=== PATIENT | male | born 1980 | race Caucasian/White ===

== ENCOUNTER 2016-12-20 19:09 | Emergency (ER) | payer OTHER ==
[2016-12-20 19:27] VITALS: TEMP 97.8
[2016-12-20 20:41] VITALS: BP 148/94; RESP 18
[2016-12-20 20:42] VITALS: PULSE 105
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
== END 2016-12-20 22:10 | disposition home or self-care (01) ==
LOC: EC 19:09
DX: S51.811A Laceration without foreign body of right forearm, initial encounter (principal); S61.511A Laceration without foreign body of right wrist, initial encounter; F10.129 Alcohol abuse with intoxication, unspecified; F17.200 Nicotine dependence, unspecified, uncomplicated; Z79.899 Other long term (current) drug therapy; Z88.0 Allergy status to penicillin; Z91.048 Other nonmedicinal substance allergy status; W25.XXXA Contact with sharp glass, initial encounter
CPT/HCPCS: 12001; 99282

== ENCOUNTER → 2017-03-27 | Day surgery (SDC) | payer OTHER ==
[2017-03-21 15:24] VITALS: BMI 24.6
[~2017-03-27] MED LIST: MIDAZOLAM 2 MG/2 ML VIAL IVP ONE; MIDAZOLAM 2 MG/2 ML VIAL ONE; SODIUM CHLORIDE 0.9% 250 ML IV ONE; fentaNYL (PF) 50 MCG/ML 2 ML AMP ONE
[2017-03-27 06:52] VITALS: RESP 18; TEMP 97.8
[2017-03-27] MEDS: BENZOCAINE SPRAY 1 SPRAY CAN MUCOUS MEM ONE ×2 (07:24→07:26)
[2017-03-27] MEDS: MIDAZOLAM 2 MG/2 ML VIAL IVP ONE ×3 (07:26→07:44)
[2017-03-27 09:11] VITALS: BP 119/79; PULSE 62
--- NOTE | 2017-03-27 09:24 | ECHOT ---
TRANSESOPHAGEAL ECHOCARDIOGRAM DATE OF SERVICE: 03/27/2017 PERFORMING PHYSICIAN: Magdaleno Escobedo MD, Bed Worker. PROCEDURE PERFORMED: Transesophageal echocardiogram. INDICATION: This is a pleasant 36-year-old gentleman who was diagnosed with possible a TIA/stroke by Dr. Hill who requested the patient to undergo transesophageal echocardiogram to rule out any cardiac source of embolization. COMPLICATION: None. LEVEL OF SEDATION: Moderate with a sedation length of about 15 minutes. PROCEDURE DESCRIPTION: After obtaining an informed consent, the patient was brought to the Transesophageal Echocardiogram Suite. The patient was turned into left lateral position. The throat was sprayed using lidocaine. A pulse oximetry and heart rate monitor were attached to the patient. Subsequently, the transesophageal echocardiogram probe was advanced to the mid esophagus where 2D echocardiogram images as well as color Doppler images of various cardiac structures were obtained. The procedure was completed without any complication. FINDINGS: The left ventricular dimension and systolic function appeared to be within normal limits. The ejection fraction appeared to be in the range of 55% to 60% with normal wall motion. The right ventricle is of normal size and function. The left atrium and right atrium dimension appear to be within normal limits. The aortic valve is a trileaflet valve without stenosis or regurgitation. The mitral valve seems to be normal with trace MR. Normal tricuspid valve and pulmonic valve were seen. The left atrial appendage appeared to be free from any thrombus. The interatrial septum appeared to be intact. CONCLUSION: 1. There is no evidence of cardiac source of embolization. 2. Intact interatrial septum without any evidence of shunt. 3. Normal left atrial appendage without any thrombus. 4. Normal left ventricular dimension and systolic function. 5. Normal cardiac chamber sizes. 6. Overall normal intracardiac valves. 7. Normal aortic root dimension. 8. No evidence of pericardial effusion. MMODL / IJN: [id number] /
== END ==
LOC: CATHCVL 06:26
PROVIDERS: ATTEND Internal Medicine Interventional Cardiology
DX: R26.89 Other abnormalities of gait and mobility (principal); R20.0 Anesthesia of skin; Z86.73 Personal history of transient ischemic attack (TIA), and cerebral infarction without residual deficits; F17.200 Nicotine dependence, unspecified, uncomplicated; G47.00 Insomnia, unspecified; G56.03 Carpal tunnel syndrome, bilateral upper limbs; M54.2 Cervicalgia; G57.82 Other specified mononeuropathies of left lower limb; M19.90 Unspecified osteoarthritis, unspecified site; Z79.891 Long term (current) use of opiate analgesic; Z79.899 Other long term (current) drug therapy; Z79.82 Long term (current) use of aspirin; Z79.51 Long term (current) use of inhaled steroids; Z88.0 Allergy status to penicillin
CPT/HCPCS: 93312; 93320; 93325; 99152; 99153; J2250; J3010

== ENCOUNTER → 2018-03-12 | Outpatient (CLI) | payer OTHER ==
--- NOTE | 2018-03-12 10:59 | MR ---
EXAMINATION TYPE: MR shoulder RT wo con DATE OF EXAM: 03/12/2018 8:50 AM COMPARISON: NONE HISTORY: Right shoulder pain TECHNIQUE: Multiplanar multispin echo imaging of the right shoulder was performed. FINDINGS: Rotator cuff : Mild thickening and heterogeneity of the supraspinatus tendon compatible chronic tendi nopathy. There is no complete or bursal/articular sided partial rotator cuff tear. The subscapularis constituent of the rotator cuff is intact. Bursa: No bursal effusion or thickening is seen. Musculature: There is no muscular tear, contusion, or atrophy. Acromioclavicular joint : There are moderate degenerative changes of the acromioclavicular joint. Th ere is no anterior or lateral acromial downsloping. Osseous structures : There are no fractures or regions of abnormal bone marrow signal intensity. Long biceps tendon : The biceps tendon is normally situated within the bicipital groove. No complete or partial biceps tendon tear is present. Glenohumeral Joint fluid : There is no glenohumeral joint effusion. Cartilage and Bone : No focal hyaline cartilage defects are noted. No Hill-Sachs, reverse Hill-Sachs, or bony Bankart lesions are seen. Labrum : There are no SLAP or soft tissue Bankart lesions. No paralabral cysts are seen. OTHER FINDINGS : none IMPRESSION: 1. 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 No evidence for partial or fu ll-thickness tear.
== END | disposition home or self-care (01) ==
LOC: RADMRIMAIN 08:11
PROVIDERS: ATTEND Orthopaedic Surgery Sports Medicine
DX: M19.011 Primary osteoarthritis, right shoulder (principal); M75.81 Other shoulder lesions, right shoulder

== ENCOUNTER → 2018-03-26 | Outpatient (CLI) | payer OTHER ==
--- NOTE | 2018-03-26 07:57 | US ---
EXAMINATION TYPE: US liver DATE OF EXAM: 03/26/2018 COMPARISON: NONE CLINICAL HISTORY: R94.5 Abnormal results of liver function meds for HTN EXAM MEASUREMENTS: Liver Length: 19.2 cm Gallbladder Wall: 0.2 cm CBD: 0.4 cm Right Kidney: 11.1 x 5.9 x 4.1 cm Pancreas: wnl as seen as tail obscured by overlying bowel gas Liver: enlarged liver; hepatic veins limitedly seen and liver is hyperechoic to right renal cortex wh ich suggests fatty liver. This limits evaluation for underlying hepatic masses. Gallbladder: wnl Evidence for sonographic Hyatt's sign: no CBD: wnl Right Kidney: wnl IMPRESSION: 1. Sonographic findings most commonly related to hepatic steatosis overall appearing mild in degree. Correlate with liver function tests to exclude other hepatocellular diseases. 2. Suboptimal visualization of pancreas.
[2018-03-26 08:55] LABS: Albumin 4.5 g/dL (3.5-5.0); Bilirubin, Delta 0.3 mg/dL (0.0-0.2); Bilirubin,Unconjugated 0.3 mg/dL (0.0-1.1); Total Bilirubin 0.6 mg/dL (0.2-1.3); Total Protein 7.4 g/dL (6.3-8.2)
[2018-03-26 17:59] LABS: Iron Saturation 48.58 (15.00-50.00); Protein, Total 7.1 g/dL (6.2-8.2)
[2018-03-26 18:49] LABS: Hepatitis A Antibody IgM Non-Reactive (Non-Reactive); Hepatitis B Core IgM Non-Reactive (Non-Reactive)
[2018-03-27 12:29] LABS: Ceruloplasmin 22.4 mg/dL (20.0-60.0)
[2018-03-27 12:31] LABS: Albumin 4.51 g/dL (3.80-4.90); Gamma Globulin 0.87 g/dL (0.70-1.50)
== END | disposition home or self-care (01) ==
LOC: RADUSWWP 07:00
PROVIDERS: ATTEND Physician Assistant
DX: R94.5 Abnormal results of liver function studies (principal)
CPT/HCPCS: 76705; 80074; 80076; 82390; 82728; 83516; 83540; 83550; 84165; 86038

== ENCOUNTER 2018-04-10 07:31 | Day surgery (SDC) | payer OTHER ==
[2018-04-06 16:02] VITALS: BMI 24.7
[~2018-04-10 07:31] MED LIST changes: +HYDROmorphone 0.5 MG/0.5 ML SYRINGE IVP PRN; +LACTATED RINGERS 1,000 ML IV SCH; +LIDOCAINE 1% 20 ML VIAL (10MG/ML) FOR IV START INTRADERMA PRN; -MIDAZOLAM 2 MG/2 ML VIAL IVP ONE; -MIDAZOLAM 2 MG/2 ML VIAL ONE; -SODIUM CHLORIDE 0.9% 250 ML IV ONE; -fentaNYL (PF) 50 MCG/ML 2 ML AMP ONE
[2018-04-10 07:54] VITALS: TEMP 98
[2018-04-10] MEDS ORDERED: PROPOFOL 10 MG/ML 20 ML VIAL IV ONE (08:30)
[2018-04-10 09:09] VITALS: RESP 16
--- NOTE | 2018-04-10 09:18 | P.PCN ---
Date of Procedure: 04/10/18 Procedure(s) Performed: procedure: 1. Esophagogastroduodenoscopy and biopsy. 2. Colonoscopy and biopsy. Preoperative diagnosis: Chronic reflux symptoms and nausea and change in bowel habits. Postoperative diagnosis: 1. Sliding hiatal hernia with a grade B distal esophagitis. 2. Mild gastritis and duodenitis. 3. Colon and terminal ileum within normal limits with no evidence of inflammatory bowel disease. 4. Diminutive polyp in the rectum biopsied but no large polyps or tumors. Preparation: HalfLytely prep. Sedation: Was provided by anesthesia. Brief clinical history: The patient is a 37-year-old male who was evaluated in the office last month regarding chronic reflux symptoms and diarrhea. There is family history of colon cancer in his maternal grandmother. There is also history of diverticulitis. The patient had chronic reflux for many years and most medications made him feel worse. This evaluation is to assess for complicated reflux disease, colon neoplasia or other pathology. Procedure: With the patient on his left lateral decubitus position and after informed consent and adequate sedation, I passed the Olympus-GIF 160 video upper endoscope through the cricopharyngeus down the esophagus. GE junction was around 38 cm from the incisors and there was a sliding hiatal hernia measuring around 2 cm. The distal esophagus showed several short linear erosion terminating at the GE junction consistent with LA grade B distal esophagitis. There were no strictures or Martell's esophagus. The endoscope was then passed into the stomach which was insufflated with air and inspected in detail including the retroflex view in the cardia. There was some mottling and erythema in the antrum consistent with gastritis but there were no ulcers or erosions. Pyloric channel, duodenal bulb, post bulbar area and descending duodenum showed no ulcers or erosions. There was minimal erythema in the bulb. Multiple biopsies obtained in the duodenum, antrum and esophagus then the endoscope was withdrawn and I proceeded with the colonoscopy. Perianal area did not show any fissures or fistulas. There were no masses felt on digital rectal examination. The Olympus CFQ 160L video colonoscope was then inserted in the rectum in the usual fashion and advanced to the cecum. I intubated the ileocecal valve and examined the terminal ileum. Terminal ileum and colon appeared healthy with no edema, erythema, friability, ulceration, exudation or spontaneous bleeding. There was a diminutive polyp in the rectum which I biopsied but there were no large polyps or tumors. No obvious diverticular disease. I retroflexed the endoscope in the rectum before the endoscope was withdrawn. No obvious pathology was noted. I also obtained biopsies from the terminal ileum and randomly from the colon. The patient tolerated the procedure well. Plan: The patient was reassured. He will follow up in the office later this month as planned. Further plans will be made based on his course and biopsy results. Depending on the pathology results I would be recommending repeat colonoscopy in 5 years. He will follow up with you as planned.
[2018-04-10 09:23] VITALS: BP 129/87; PULSE 89
== END 2018-04-10 10:01 | disposition home or self-care (01) ==
LOC: ORWHC2ENDO 07:31
DX: D12.8 Benign neoplasm of rectum (principal); K29.80 Duodenitis without bleeding; K21.0 Gastro-esophageal reflux disease with esophagitis; K29.70 Gastritis, unspecified, without bleeding; K44.9 Diaphragmatic hernia without obstruction or gangrene; J45.909 Unspecified asthma, uncomplicated; I10 Essential (primary) hypertension; Z86.73 Personal history of transient ischemic attack (TIA), and cerebral infarction without residual deficits; Z88.0 Allergy status to penicillin; Z79.82 Long term (current) use of aspirin; Z72.0 Tobacco use; Z80.0 Family history of malignant neoplasm of digestive organs; Z79.899 Other long term (current) drug therapy
CPT/HCPCS: 88305; 45380; 43239; J2704

== ENCOUNTER → 2018-11-29 | Outpatient (CLI) | payer OTHER ==
[2018-11-29 11:39] LABS: Basophils # (A) 0.1 k/uL (0-0.2); Basophils % (A) 1 %; Eosinophils # (A) 0.2 k/uL (0-0.7); Eosinophils % (A) 4 %; HCT 46.9 % (39.0-53.0); HGB 15.3 gm/dL (13.0-17.5); Lymphocytes # (A) 1.6 k/uL (1.0-4.8); Lymphocytes % (A) 30 %; MCH 31.4 pg (25.0-35.0); MCHC 32.6 g/dL (31.0-37.0); MCV 96.2 fL (80.0-100.0); Mean Platelet Volume 7.2; Monocytes # (A) 0.4 k/uL (0-1.0); Monocytes % (A) 8 %; Neutrophils # (A) 2.8 k/uL (1.3-7.7); Neutrophils % (A) 53 %; Platelet Count 200 k/uL (150-450); RBC 4.88 m/uL (4.30-5.90); RDW 12.3 % (11.5-15.5); WBC 5.3 k/uL (3.8-10.6)
[2018-11-29 11:52] LABS: Appearance,Urine Clear (Clear); Bilirubin,Urine Negative (Negative); Blood,Urine Negative (Negative); Color,Urine Yellow; Glucose,Urine (UA) Negative (Negative); Ketones,Urine Negative (Negative); Leukocyte Esterase,Urine Negative (Negative); Nitrite,Urine Negative (Negative); Protein,Urine Negative (Negative); Specific Gravity,Urine 1.013 (1.001-1.035); Urobilinogen,Urine <2.0 mg/dL (<2.0)
[2018-11-29 11:55] LABS: INR 0.9 (<1.2); Partial Thromboplastin Time 24.7 sec (22.0-30.0); Prothrombin Time 9.5 sec (9.0-12.0)
[2018-11-29 12:05] LABS: African American GFR (CKD) >90 (>60 ml/min/1.73 sqM); Anion Gap 10 mmol/L; Blood Urea Nitrogen 12 mg/dL (9-20); Calcium 10.1 mg/dL (8.4-10.2); Carbon Dioxide 28 mmol/L (22-30); Chloride 99 mmol/L (98-107); Glucose 105 mg/dL (74-99); Potassium 4.9 mmol/L (3.5-5.1); Sodium 137 mmol/L (137-145)
--- NOTE | 2018-11-29 15:49 | XR ---
EXAMINATION TYPE: XR chest 2V DATE OF EXAM: 11/29/2018 COMPARISON: NONE HISTORY: Preop TECHNIQUE: Frontal and lateral views of the chest are obtained. FINDINGS: There is no focal air space opacity, pleural effusion, or pneumothorax seen. The cardiac silhouette size is within normal limits. The osseous structures are intact. IMPRESSION: No acute cardiopulmonary process.
== END ==
LOC: LABPAT 10:35
PROVIDERS: ATTEND Orthopaedic Surgery Orthopaedic Surgery of the Spine
DX: Z01.818 Encounter for other preprocedural examination (principal); M48.02 Spinal stenosis, cervical region; Z01.812 Encounter for preprocedural laboratory examination
CPT/HCPCS: 36415; 71046; 80048; 81003; 85025; 85610; 85730

== ENCOUNTER 2018-12-05 08:59 | Day surgery (SDC) | payer OTHER ==
[2018-11-28 12:30] VITALS: BMI 25.1
[~2018-12-05 08:59] MED LIST changes: +BACITRACIN 50,000 UNIT, POLYMYXIN B 500,000 UNIT in SODIUM CHLORIDE 0.9% IRRIGATIO 1,00... IRRIGATION ONE; +ONDANSETRON 4 MG/2 ML VIAL IVP ONE; +ceFAZolin IN SWFI 2 GM/20 ML SYRINGE IVP ONE
[2018-12-05] MEDS ORDERED: PROPOFOL 10 MG/ML 20 ML VIAL IV ONE (11:33)
[2018-12-05] MEDS ORDERED: GLYCOPYRROLATE 0.2 MG/ML 2 ML VIAL ONE (11:33)
[2018-12-05] MEDS ORDERED: ROCURONIUM BROMIDE 10 MG/ML 10 ML VIAL IV ONE (11:33)
[2018-12-05] MEDS ORDERED: HYDROmorphone (PF) 1 MG/ML ONE (11:33)
[2018-12-05] MEDS ORDERED: DEXAMETHASONE SOD PHOS (MDV) 100 MG/10 ML VIAL ONE (11:33)
[2018-12-05] MEDS ORDERED: fentaNYL (PF) 50 MCG/ML 2 ML AMP ONE (11:33)
[2018-12-05] MEDS ORDERED: LIDOCAINE 1% INJ 10MG/ML (20 ML MDV) ONE (11:33)
[2018-12-05] MEDS ORDERED: NEOSTIGMINE 1 MG/ML 10 ML VIAL ONE (11:33)
[2018-12-05] MEDS ORDERED: SUCCINYLCHOLINE CHLORIDE 100 MG/5 ML SYR IV ONE (11:33)
[2018-12-05] MEDS ORDERED: MIDAZOLAM 2 MG/2 ML VIAL ONE (11:33)
[2018-12-05] MEDS ORDERED: BUPIVACAINE-EPI 0.5%-1:200,000 10 ML VIAL SQ ONE ×2 (12:14)
[2018-12-05] MEDS ORDERED: GELATIN SPONGE,ABSORB (LARGE) 1 EACH SPONGE MISCELLANE ONE (12:15)
[2018-12-05] MEDS ORDERED: THROMBIN (BOVINE) 5,000 UNIT VIAL TOPICAL ONE (12:15)
[2018-12-05] MEDS ORDERED: LACTATED RINGERS 1,000 ML IV ONE (12:16)
[2018-12-05 13:42] VITALS: TEMP 97.7
[2018-12-05] MEDS ORDERED: HYDROmorphone 1 MG/ML 1 ML SYRINGE IVP PRN (13:42)
[2018-12-05] MEDS ORDERED: HYDROmorphone 0.5 MG/0.5 ML SYRINGE IVP PRN (13:42)
[2018-12-05] MEDS ORDERED: BENZOCAINE/MENTHOL LOZENG 1 EACH LOZENGE MUCOUS MEM PRN (13:42)
[2018-12-05] MEDS ORDERED: HYDROcodone/APAP 5-325MG 1 EACH TAB PO PRN (13:42)
[2018-12-05] MEDS ORDERED: ONDANSETRON 4 MG/2 ML VIAL IVP PRN (13:42)
[2018-12-05] MEDS ORDERED: ACETAMINOPHEN TAB 325 MG TAB PO PRN (13:42)
[2018-12-05] MEDS ORDERED: SODIUM CHLORIDE 0.9% 1,000 ML IV SCH (13:45)
--- NOTE | 2018-12-05 13:48 | P.OP ---
Date of Procedure: 12/05/18 Preoperative Diagnosis: Herniated nucleus pulposis C5 6 C6 7, right upper extremity radiculopathy, neck pain, right upper extremity weakness Postoperative Diagnosis: Same Anesthesia: GETA Pathology: none sent Condition: stable Disposition: PACU Description of Procedure: BRIEF OPERATIVE NOTE Preoperative Diagnosis:Herniated nucleus pulposis C5 6 C6 7, right upper extremity radiculopathy, neck pain, right upper extremity weakness Postoperative Diagnosis:Herniated nucleus pulposis C5 6 C6 7, right upper extremity radiculopathy, neck pain, right upper extremity weakness Procedure: Anterior cervical decompression with discectomy and fusion C5 6 C6 7 Placement of interbody graft C5 6 C6 7 Application of anterior cervical plate C5 6 7 Surgeon: Dr. Schroeder Sales Relationship Manager: Quang Baig is present throughout the entire the case persistence during positioning, dissection, exposure, visualization, and all crucial elements of the case as well as closure. Anesthesia: General anesthesia Estimated blood loss: Less than 50 mL Complications: None apparent Components implanted: K2M Winston anterior cervical plate system with a 40 mm plate and 6 screws measuring 14 mm and 2 Vikos interbody allograft bone grafts and 1 mL of DBX bone putty supplement the bone graft Disposition: To recovery room in good stable condition. OPERATIVE INDICATIONS The patient has had long-standing issues in their neck and upper extremities. He has had severe worsening of his upper extremity right side over the past several months. He was found have a disc herniation at C5 6 and C6 7 with severe right foraminal stenosis which correlated well with his neck and upper extremity symptoms. He is having some weakness as well and having increasing difficulty with activities. The patient has been through conservative treatment. He is not having any prolonged benefit despite aggressive conservative care. We discussed various treatment options including surgery, and the patient wishes to proceed with surgery We discussed the risk, patient's alternatives and benefits of surgery including but not limited to, risk of bleeding risk of infection, risk of need for further surgery, risk of decreased, loss of motion, muscle function, malunion nonunion, hardware failure, nerve damage, paralysis, heart attack, and . OPERATIVE SUMMARY After discussing all the risks, patient alternatives and benefits at length, the patient elected to proceed with surgical intervention, signed informed consent, and presented for their procedure. The patient was seen and examined in the preoperative holding area and the surgical site was marked. The patient was given antibiotics and brought to the operating room. The patient was positioned on the operating room table in a supine position being careful to pad any bony prominences and pressure points. The patient was sedated and intubated by anesthesia in standard fashion. Once the airway and C- spine were stabilized the patient's arms were padded and tucked at her side, with her shoulders gently taped. The head was placed in a donut pad with the neck in good neutral alignment and position. We were careful to maintain the patient's cervical spine and good neutral alignment and position throughout. The patient was prepped and draped in a normal standard fashion. An appropriate timeout and keystone protocol performed. We were able to proceed with the surgery. The local wound area was infiltrated with local anesthetic. An incision was made transversely approximately 2-1/2 cm over the appropriate levels at C6. Dissection was taken down subcutaneously to the level of the platysma which was split in line with its fibers. Dissection was taken with a carotid approach, with the trachea and esophagus medial and the carotid sheath laterally. We dissected down to the anterior surface of the vertebral bodies of C5 6 and 7. Intraoperative x-ray was taken which showed a marker at the appropriate level at C5 6. With the appropriate level positively confirmed, we were able to proceed with discectomy at the appropriate levels. All of the operative levels were exposed appropriately. The patient had all their twitches back, and there was no evidence of recurrent laryngeal issue. The wound was copiously irrigated and suctioned dry as had been done periodically throughout the case. At the appropriate level/levels, starting at C6 7 and in moving the C5 6 I established an annulotomy with an 11 blade scalpel. A discectomy was performed with a combination of pituitary rongeurs, curettes, a high-speed bur, and Kerrison rongeurs. The posterior longitudinal ligament was taken down as were any posterior osteophytes. Note was made of significant disc herniation presented to the right side at each level more set C6 7 than at C5 6. These herniations were removed appropriately. This gave good central and bilateral foraminal decompression. There is no evidence of any dural tear or leak. The endplates were prepared with a high-speed bur. With the endplates in good parallel position, I was able to size for the appropriate size interbody graft. The wound was irrigated and suctioned dry the graft was prepared and malleted into position. It had good alignment and position with the anterior surface flush with the anterior surface of the vertebral bodies of C5 6 and 7. This was done similarly the appropriate levels. With the grafts intact, I was able to measure and contour and appropriate sized plate. The plate was positioned at the midline over the appropriate levels of C5 6 and 7. Screw holes were established with a hand drill and drill guide. Screws were placed in good alignment and position with excellent bony purchase. They were seated under the locking device. The construct was checked and found to be stable. Intraoperative x-ray was taken which showed good alignment and position of the implants at the appropriate levels of C5 6 and 7. There was no evidence of any dural tear or leak. Good hemostasis was maintained. The wound was copiously irrigated and suctioned dry as had been done periodically throughout the case. The platysma was closed with absorbable suture. The subcutaneous tissue was closed. The subcuticular tissue was closed with absorbable suture. The wound was cleaned and dried and dressed appropriately. A soft cervical collar was placed appropriately. The patient was woken up by anesthesia, extubated, transferred back gently to their hospital bed and brought to the recovery room in good stable condition. The patient will be admitted to the hospital for appropriate postoperative care, medical management and monitoring. We will continue to follow them closely about the postoperative course.
[2018-12-05 15:10] VITALS: BP 142/84; PULSE 66; RESP 18
[2018-12-05] MEDS ORDERED: ceFAZolin IN SWFI 2 GM/20 ML SYRINGE IVP SCH (16:00)
--- NOTE | 2018-12-05 16:17 | XR ---
Cervical spine HISTORY: Needle placement Single lateral view of the cervical spine There is a needle at intervertebral disc space of C5-6. Endotracheal tube is present. There is spondy losis. IMPRESSION: Orthopedic localization
--- NOTE | 2018-12-05 16:25 | XR ---
Cervical spine HISTORY: Anterior cervical fusion and discectomy Single lateral view of the cervical spine submitted and correlated prior exam same dated earlier time . Patient is status post C5-C7 anterior cervical fusion, intervertebral spacing blocks present at C5-6 and C6-7. There is anatomic alignment. Endotracheal tube remains in place. IMPRESSION: Orthopedic follow-up
[2018-12-05] MEDS ORDERED: CYANOCOBALAMIN 500 MCG TAB PO SCH (21:00)
[2018-12-06] MEDS ORDERED: PANTOPRAZOLE 40 MG TABLET PO SCH (07:30)
[2018-12-06] MEDS ORDERED: SENNOSIDES-DOCUSATE SODIUM 1 EACH TAB PO SCH (09:00)
[2018-12-06] MEDS ORDERED: ASPIRIN 81 MG PO SCH (09:00)
[2018-12-06] MEDS ORDERED: LISINOPRIL 20 MG TAB PO SCH (09:00)
[2018-12-06] MEDS ORDERED: CHOLECALCIFEROL 1,000 UNIT TAB PO SCH (09:00)
== END 2018-12-05 15:36 | disposition home or self-care (01) ==
LOC: OR 08:59
PROVIDERS: ATTEND Orthopaedic Surgery Orthopaedic Surgery of the Spine
DX: M50.122 Cervical disc disorder at C5-C6 level with radiculopathy (principal); M50.022 Cervical disc disorder at C5-C6 level with myelopathy; M48.02 Spinal stenosis, cervical region; M47.22 Other spondylosis with radiculopathy, cervical region; M47.12 Other spondylosis with myelopathy, cervical region; M25.78 Osteophyte, vertebrae; I10 Essential (primary) hypertension; Z87.11 Personal history of peptic ulcer disease; Z97.3 Presence of spectacles and contact lenses; F17.210 Nicotine dependence, cigarettes, uncomplicated; Z79.899 Other long term (current) drug therapy; Z88.0 Allergy status to penicillin; G95.89 Other specified diseases of spinal cord
CPT/HCPCS: 22551; 22552; 20931; 22845; 72020; C1713 ×2; C1762; J2250; J2710; J2405; J2001; J3010; J1170 ×2; J1100; J0330; J2704; J0690; 86850; 86900; 86901

== ENCOUNTER 2021-04-07 23:01 | Emergency (ER) | payer OTHER ==
[2021-04-07 23:31] VITALS: BP 102/67; PULSE 100; RESP 18; TEMP 97.9
--- NOTE | 2021-04-08 00:16 | XR ---
EXAMINATION TYPE: XR chest 2V DATE OF EXAM: 04/07/2021 COMPARISON: 11/29/2018 HISTORY: Cough. Short of breath TECHNIQUE: 2 view FINDINGS: Heart and mediastinum are normal. Lungs are clear. Diaphragm is normal. Bony thorax is inta ct. IMPRESSION: Normal chest. No change.
[2021-04-08] MEDS ORDERED: AZITHROMYCIN 500 MG TAB PO STA (00:28)
[2021-04-08] MEDS ORDERED: predniSONE 50 MG TAB PO STA (00:28)
--- NOTE | 2021-04-08 00:29 | ED ---
URI HPI - General Chief Complaint: Upper Respiratory Infection Stated Complaint: Cough, KIA Time Seen by Provider: 04/07/21 23:39 Source: patient Mode of arrival: ambulatory - History of Present Illness Initial Comments: 40-year-old male patient who presents to the emergency department today for evaluation of cough, congestion, shortness of breath. Patient states that he gets bronchitis every year, is generally treated with a Z-Reji. States that he has been sick for the last week or so. Does report coughing up clear sputum. Denies any known fever or chills. States at times he is wheezy. Does admit to smoking cigarettes. Does have inhalers at home but does not use them. He denies any chest pain. Denies nasal congestion or drainage. Denies any sick contacts. Has not had influenza or covid vaccine. Patient denies any recent rash, abdominal pain, nausea, vomiting, diarrhea, constipation, back pain, numbness, tingling, dizziness, weakness, hematuria, dysuria, urinary urgency, urinary frequency, headache, visual changes, or any other complaints. - Related Data Home Medications Medication Instructions Recorded Confirmed Aspirin 81 mg PO DAILY 03/27/17 12/05/18 Cholecalciferol [Vitamin D3] 5,000 unit PO DAILY 03/22/18 12/05/18 Cyanocobalamin [Vitamin B-12] 500 mcg PO BID 03/22/18 12/05/18 Omeprazole [PriLOSEC] 20 mg PO AC-BRKFST 03/22/18 12/05/18 lisinopriL [Zestril] 20 mg PO DAILY 03/22/18 12/05/18 Previous Rx's Medication Instructions Recorded HYDROcodone/APAP 5-325MG [[place] 5] 1 each PO Q4HR PRN #18 tab 12/05/18 Azithromycin [Zithromax Z-pack (6 0 mg PO DIRECTED #6 tab 04/08/21 tabs)] predniSONE 50 mg PO DAILY #5 tablet 04/08/21 Allergies Allergy/AdvReac Type Severity Reaction Status Date / Time mold Allergy Swelling Verified 04/07/21 23:32 Penicillins Allergy Swelling Verified 04/07/21 23:32 Review of Systems ROS Statement: Those systems with pertinent positive or pertinent negative responses have been documented in the HPI. ROS Other: All systems not noted in ROS Statement are negative. Past Medical History Past Medical History: COPD, Hypertension Additional Past Medical History / Comment(s): past hx. back fractures, "? stroke"-however probably more related to neck issues because was having weakness in left arm per pt, poor vision, "possible sleep apnea, never diagnosed". Hx Shingles 3 yrs ago on abdomen, pain in right shoulder & down arm from neck problem History of Any Multi-Drug Resistant Organisms: None Reported Past Surgical History: Orthopedic Surgery Additional Past Surgical History / Comment(s): multiple bilateral eye surgeries as a child, ALE, EGD, colonoscopy Past Anesthesia/Blood Transfusion Reactions: No Reported Reaction Additional Past Anesthesia/Blood Transfusion Reaction / Comment(s): Has never had general anesthesia. Past Psychological History: No Psychological Hx Reported Smoking Status: Current every day smoker Past Alcohol Use History: Occasional Past Drug Use History: None Reported - Past Family History Mother Additional Family Medical History / Comment(s): Diverticulitis General Exam General appearance: alert, in no apparent distress, other (This is a well- developed, well-nourished adult male patient in no acute distress. Vital signs upon presentation are temperature 97.9F, pulse 100, respirations 18, blood pressure 102/67, pulse ox 97% on room air.) Eye exam: Present: normal appearance, PERRL, EOMI. Absent: scleral icterus, conjunctival injection, periorbital swelling ENT exam: Present: normal exam, normal oropharynx, mucous membranes moist Respiratory exam: Present: normal lung sounds bilaterally. Absent: respiratory distress, wheezes, rales, rhonchi, stridor Cardiovascular Exam: Present: regular rate, normal rhythm, normal heart sounds. Absent: systolic murmur, diastolic murmur, rubs, gallop, clicks GI/Abdominal exam: Present: soft, normal bowel sounds. Absent: distended, tenderness, guarding, rebound, rigid Neurological exam: Present: alert, oriented X3, CN II-XII intact Psychiatric exam: Present: normal affect, normal mood Skin exam: Present: warm, dry, intact, normal color. Absent: rash Course Vital Signs 04/07/21 23:28 Temperature 97.9 F Pulse Rate 100 Respiratory 18 Rate Blood Pressure 102/67 O2 Sat by Pulse 97 Oximetry Medical Decision Making - Medical Decision Making 40-year-old male patient presented to the emergency department today for evaluation of increased cough and wheezing. Physical examination did reveal clear equal lung sounds. Vital signs unremarkable. He is afebrile. He declined testing for COVID-19. Chest x-ray is negative. We will treat for acute bronchitis with azithromycin and prednisone. He is discharged follow-up with his primary care physician for recheck in 1-2 days. Return parameters were discussed in detail. He verbalizes understanding and agrees with this plan. Case discussed with my attending Dr. Mendoza. - Radiology Data Radiology results: report reviewed, image reviewed Two-view x-ray of the chest is obtained. Report is reviewed in its entirety. Impression by Dr. Hair shows normal chest. No change. Disposition Clinical Impression: Acute bronchitis Disposition: HOME SELF-CARE Condition: Good Instructions (If sedation given, give patient instructions): Acute Bronchitis (ED) Additional Instructions: Take medications as directed. Follow-up through primary care physician for recheck in 1-2 days. Return for any new, worsening, or concerning symptoms. Prescriptions: predniSONE 50 mg PO DAILY #5 tablet Azithromycin [Zithromax Z-pack (6 tabs)] 0 mg PO DIRECTED #6 tab Is patient prescribed a controlled substance at d/c from ED?: No Referrals: [facility] [Primary Care Provider] - 1-2 days Time of Disposition: 00:29
== END 2021-04-08 00:40 | disposition home or self-care (01) ==
LOC: EC 23:01
DX: J20.9 Acute bronchitis, unspecified (principal); I10 Essential (primary) hypertension; J44.9 Chronic obstructive pulmonary disease, unspecified; F17.200 Nicotine dependence, unspecified, uncomplicated; Z79.82 Long term (current) use of aspirin; Z88.0 Allergy status to penicillin
CPT/HCPCS: 99284 ×2; 71046; J7512

== ENCOUNTER 2021-04-14 23:12 | Emergency (ER) | payer OTHER ==
[2021-04-14 23:19] VITALS: BP 114/73; PULSE 124; RESP 20; TEMP 97.6
--- NOTE | 2021-04-15 00:46 | XR ---
EXAMINATION TYPE: XR chest 2V DATE OF EXAM: 04/15/2021 COMPARISON: 04/08/2021 HISTORY: Chest pain TECHNIQUE: 2 views FINDINGS: Heart and mediastinum are normal. Lungs are clear. Diaphragm is normal. Bony thorax appears normal. IMPRESSION: Normal chest. No change compared to old exam. No evidence of bronchopneumonia.
[2021-04-15 00:47] LABS: Basophils # (A) 0.1 k/uL (0-0.2); Basophils % (A) 1 %; Eosinophils # (A) 0.2 k/uL (0-0.7); Eosinophils % (A) 2 %; HCT 42.2 % (39.0-53.0); Lymphocytes # (A) 2.7 k/uL (1.0-4.8); Lymphocytes % (A) 38 %; MCH 32.3 pg (25.0-35.0); MCHC 33.2 g/dL (31.0-37.0); MCV 97.2 fL (80.0-100.0); Monocytes # (A) 0.6 k/uL (0-1.0); Monocytes % (A) 8 %; Neutrophils # (A) 3.3 k/uL (1.3-7.7); Neutrophils % (A) 48 %; Platelet Count 242 k/uL (150-450); RBC 4.34 m/uL (4.30-5.90); RDW 12.1 % (11.5-15.5); WBC 6.9 k/uL (3.8-10.6)
[2021-04-15 00:59] LABS: ALT 95 U/L (4-49); AST 67 U/L (17-59); African American GFR (CKD) >90 (>60 ml/min/1.73 sqM); Albumin 4.4 g/dL (3.5-5.0); Alkaline Phosphatase 57 U/L (38-126); Anion Gap 11 mmol/L; Blood Urea Nitrogen 10 mg/dL (9-20); Calcium 9.5 mg/dL (8.4-10.2); Carbon Dioxide 22 mmol/L (22-30); Chloride 98 mmol/L (98-107); Glucose 108 mg/dL (74-99); INR 0.9 (<1.2); Non-African American GFR(CKD) >90 (>60 ml/min/1.73 sqM); Partial Thromboplastin Time 23.7 sec (22.0-30.0); Prothrombin Time 9.6 sec (9.0-12.0); Sodium 131 mmol/L (137-145); Total Bilirubin 0.4 mg/dL (0.2-1.3); Total Protein 7.1 g/dL (6.3-8.2)
--- NOTE | 2021-04-15 01:06 | ED ---
General Adult HPI - General Chief complaint: Upper Respiratory Infection Stated complaint: Revisit Upper Resp Time Seen by Provider: 04/14/21 23:43 Source: patient Mode of arrival: ambulatory Limitations: no limitations - History of Present Illness Initial comments: This patient is a 40-year-old man with a constellation of symptoms that are been going on for approximately a week. He states he has been having sinus congestion and drainage, cough, substernal burning pain with cough and some wheezing and dyspnea. He states that he seems to get this about this time every year. He was in approximately 7 days ago and was given a course of steroids and azithromycin. He states that he is feeling a little better. He still lives have some symptoms remaining. Onset/Timin -: week(s) Location: chest Quality: burning Consistency: constant Improves with: none Worsens with: none Associated Symptoms: chest pain, cough, shortness of breath Treatments Prior to Arrival: other - Related Data Home Medications Medication Instructions Recorded Confirmed Aspirin 81 mg PO DAILY 03/27/17 12/05/18 Cholecalciferol [Vitamin D3] 5,000 unit PO DAILY 03/22/18 12/05/18 Cyanocobalamin [Vitamin B-12] 500 mcg PO BID 03/22/18 12/05/18 Omeprazole [PriLOSEC] 20 mg PO AC-BRKFST 03/22/18 12/05/18 lisinopriL [Zestril] 20 mg PO DAILY 03/22/18 12/05/18 Previous Rx's Medication Instructions Recorded HYDROcodone/APAP 5-325MG [[place] 5] 1 each PO Q4HR PRN #18 tab 12/05/18 Azithromycin [Zithromax Z-pack (6 0 mg PO DIRECTED #6 tab 04/08/21 tabs)] predniSONE 50 mg PO DAILY #5 tablet 04/08/21 Azithromycin [Zithromax Z-pack (6 250 mg PO DIRECTED #6 tab 04/15/21 tabs)] predniSONE 60 mg PO DAILY #30 tab 04/15/21 Allergies Allergy/AdvReac Type Severity Reaction Status Date / Time mold Allergy Swelling Verified 04/14/21 23:14 Penicillins Allergy Swelling Verified 04/14/21 23:14 Review of Systems ROS Statement: Those systems with pertinent positive or pertinent negative responses have been documented in the HPI. ROS Other: All systems not noted in ROS Statement are negative. Constitutional: Denies: fever, chills, weakness ENT: Reports: congestion. Denies: throat pain Respiratory: Reports: as per HPI, cough, dyspnea, wheezes. Denies: hemoptysis Cardiovascular: Reports: as per HPI, chest pain Gastrointestinal: Denies: abdominal pain, nausea, vomiting, diarrhea Genitourinary: Denies: dysuria, hematuria Musculoskeletal: Denies: back pain Skin: Denies: rash Neurological: Denies: headache Past Medical History Past Medical History: COPD, Hypertension Additional Past Medical History / Comment(s): past hx. back fractures, "? stroke"-however probably more related to neck issues because was having weakness in left arm per pt, poor vision, "possible sleep apnea, never diagnosed". Hx Shingles 3 yrs ago on abdomen, pain in right shoulder & down arm from neck problem History of Any Multi-Drug Resistant Organisms: None Reported Past Surgical History: Orthopedic Surgery Additional Past Surgical History / Comment(s): multiple bilateral eye surgeries as a child, ALE, EGD, colonoscopy Past Anesthesia/Blood Transfusion Reactions: No Reported Reaction Additional Past Anesthesia/Blood Transfusion Reaction / Comment(s): Has never had general anesthesia. Past Psychological History: No Psychological Hx Reported Smoking Status: Current every day smoker Past Alcohol Use History: Occasional Past Drug Use History: None Reported - Past Family History Mother Additional Family Medical History / Comment(s): Diverticulitis General Exam Limitations: no limitations General appearance: alert, in no apparent distress Head exam: Present: atraumatic, normocephalic Eye exam: Present: normal appearance. Absent: scleral icterus, conjunctival injection Respiratory exam: Present: wheezes. Absent: respiratory distress, rales, rhonc hi, stridor, chest wall tenderness, accessory muscle use, decreased breath sounds Cardiovascular Exam: Present: normal rhythm, tachycardia, normal heart sounds. Absent: systolic murmur, diastolic murmur, rubs, gallop GI/Abdominal exam: Present: soft. Absent: distended, tenderness, guarding, rebound, rigid, mass Extremities exam: Present: normal inspection, normal capillary refill. Absent: pedal edema, calf tenderness Back exam: Present: normal inspection. Absent: CVA tenderness (R), CVA tend erness (L) Neurological exam: Present: alert Skin exam: Present: warm, dry, intact, normal color. Absent: rash Course Vital Signs 04/14/21 23:15 Temperature 97.6 F Pulse Rate 124 H Respiratory 20 Rate Blood Pressure 114/73 O2 Sat by Pulse 96 Oximetry EKG Findings - EKG Results: EKG: sinus rhythm, normal axis, normal QRS, normal ST/T, no acute changes EKG shows: tachycardia (Rate 109) Medical Decision Making - Lab Data Result diagrams: 04/15/21 00:34 04/15/21 00:34 Lab Results 04/15/21 04/15/21 04/15/21 Range/Units 00:34 00:34 00:34 WBC 6.9 (3.8-10.6) k/uL RBC 4.34 (4.30-5.90) m/uL Hgb 14.0 (13.0-17.5) gm/dL Hct 42.2 (39.0-53.0) % MCV 97.2 (80.0-100.0) fL MCH 32.3 (25.0-35.0) pg MCHC 33.2 (31.0-37.0) g/dL RDW 12.1 (11.5-15.5) % Plt Count 242 (150-450) k/uL MPV 7.0 Neutrophils % 48 % Lymphocytes % 38 % Monocytes % 8 % Eosinophils % 2 % Basophils % 1 % Neutrophils # 3.3 (1.3-7.7) k/uL Lymphocytes # 2.7 (1.0-4.8) k/uL Monocytes # 0.6 (0-1.0) k/uL Eosinophils # 0.2 (0-0.7) k/uL Basophils # 0.1 (0-0.2) k/uL PT 9.6 (9.0-12.0) sec INR 0.9 (<1.2) APTT 23.7 (22.0-30.0) sec D-Dimer 0.26 (<0.60) mg/L FEU Sodium 131 L (137-145) mmol/L Potassium 4.0 (3.5-5.1) mmol/L Chloride 98 (98-107) mmol/L Carbon Dioxide 22 (22-30) mmol/L Anion Gap 11 mmol/L BUN 10 (9-20) mg/dL Creatinine 0.85 (0.66-1.25) mg/dL Est GFR (CKD-EPI)AfAm >90 (>60 ml/min/1.73 sqM) Est GFR (CKD-EPI)NonAf >90 (>60 ml/min/1.73 sqM) Glucose 108 H (74-99) mg/dL Plasma Lactic Acid Andrés (0.7-2.0) mmol/L Calcium 9.5 (8.4-10.2) mg/dL Total Bilirubin 0.4 (0.2-1.3) mg/dL AST 67 H (17-59) U/L ALT 95 H (4-49) U/L Alkaline Phosphatase 57 (38-126) U/L Troponin I (0.000-0.034) ng/mL NT-Pro-B Natriuret Pep pg/mL Total Protein 7.1 (6.3-8.2) g/dL Albumin 4.4 (3.5-5.0) g/dL 04/15/21 04/15/21 04/15/21 Range/Units 00:34 00:34 00:34 WBC (3.8-10.6) k/uL RBC (4.30-5.90) m/uL Hgb (13.0-17.5) gm/dL Hct (39.0-53.0) % MCV (80.0-100.0) fL MCH (25.0-35.0) pg MCHC (31.0-37.0) g/dL RDW (11.5-15.5) % Plt Count (150-450) k/uL MPV Neutrophils % % Lymphocytes % % Monocytes % % Eosinophils % % Basophils % % Neutrophils # (1.3-7.7) k/uL Lymphocytes # (1.0-4.8) k/uL Monocytes # (0-1.0) k/uL Eosinophils # (0-0.7) k/uL Basophils # (0-0.2) k/uL PT (9.0-12.0) sec INR (<1.2) APTT (22.0-30.0) sec D-Dimer (<0.60) mg/L FEU Sodium (137-145) mmol/L Potassium (3.5-5.1) mmol/L Chloride (98-107) mmol/L Carbon Dioxide (22-30) mmol/L Anion Gap mmol/L BUN (9-20) mg/dL Creatinine (0.66-1.25) mg/dL Est GFR (CKD-EPI)AfAm (>60 ml/min/1.73 sqM) Est GFR (CKD-EPI)NonAf (>60 ml/min/1.73 sqM) Glucose (74-99) mg/dL Plasma Lactic Acid Andrés 1.8 (0.7-2.0) mmol/L Calcium (8.4-10.2) mg/dL Total Bilirubin (0.2-1.3) mg/dL AST (17-59) U/L ALT (4-49) U/L Alkaline Phosphatase (38-126) U/L Troponin I <0.012 (0.000-0.034) ng/mL NT-Pro-B Natriuret Pep 64 pg/mL Total Protein (6.3-8.2) g/dL Albumin (3.5-5.0) g/dL Disposition Clinical Impression: Acute bronchitis Disposition: HOME SELF-CARE Condition: Good Instructions (If sedation given, give patient instructions): Acute Bronchitis (ED) Prescriptions: predniSONE 60 mg PO DAILY #30 tab Azithromycin [Zithromax Z-pack (6 tabs)] 250 mg PO DIRECTED #6 tab Is patient prescribed a controlled substance at d/c from ED?: No Referrals: None,Stated [Primary Care Provider] - 1-2 days
[2021-04-15] MEDS ORDERED: predniSONE 20 MG TAB PO STA (01:36)
[2021-04-15] MEDS ORDERED: AZITHROMYCIN 500 MG TAB PO STA (01:36)
== END 2021-04-15 01:48 | disposition home or self-care (01) ==
LOC: SUPCPDRO 23:12 → EC 23:12
DX: J20.9 Acute bronchitis, unspecified (principal); I10 Essential (primary) hypertension; J44.9 Chronic obstructive pulmonary disease, unspecified; F17.200 Nicotine dependence, unspecified, uncomplicated; Z79.52 Long term (current) use of systemic steroids; Z79.82 Long term (current) use of aspirin; Z79.899 Other long term (current) drug therapy; Z88.0 Allergy status to penicillin
CPT/HCPCS: 36415; 71046; 80053; 83605; 83880; 84484; 85025; 85379; 85610; 85730; 93005; 99285

== ENCOUNTER → 2022-01-26 | Outpatient (CLI) | payer OTHER ==
[2022-01-26 15:49] LABS: Triglycerides 40.2 mg/dL (0.00-149.00)
[2022-01-26 16:05] LABS: Chol/HDL Ratio 1.34 Ratio; LDL Cholesterol,Direct Reflex 63.8 mg/dL (0.00-129.00)
== END | disposition home or self-care (01) ==
LOC: LABWHC1 09:08
PROVIDERS: ATTEND Internal Medicine Cardiovascular Disease
DX: I10 Essential (primary) hypertension (principal); E78.2 Mixed hyperlipidemia
CPT/HCPCS: 36415; 80061; 83721; 84450; 84460

== ENCOUNTER → 2024-11-15 | Outpatient (CLI) | payer OTHER ==
[2024-11-15 16:23] LABS: Basophils # (A) 0.18 X 10*3/uL (0.00-0.10); Basophils % (A) 2.5 %; Eosinophils # (A) 0.16 X 10*3/uL (0.04-0.35); Eosinophils % (A) 2.2 %; HCT 49.4 % (39.6-50.0); HGB 16.4 g/dL (13.0-17.0); Lymphocytes # (A) 2.05 X 10*3/uL (0.90-5.00); Lymphocytes % (A) 28.4 %; MCH 31.9 pg (27.0-32.0); MCHC 33.2 g/dL (32.0-37.0); MCV 96.1 FL (80.0-97.0); Mean Platelet Volume 10.8 FL (9.5-12.2); Monocytes # (A) 1.08 X 10*3/uL (0.20-1.00); Monocytes % (A) 14.9 %; NRBC Per 100 WBC 0 X 10*3/uL (0.00-0.01); Neutrophils % (A) 51.2 %; Platelet Count 152 X 10*3/uL (140-440); RBC 5.14 X 10*6/uL (4.40-5.60); RDW 14.2 % (11.5-14.5); WBC 7.23 X 10*3/uL (4.50-10.00)
[2024-11-15 17:47] LABS: ALT 113 U/L (10-49); AST 100 U/L (14-35); Albumin 4.7 g/dL (3.8-4.9); Albumin/Globulin Ratio 1.62 Ratio (1.60-3.17); Alkaline Phosphatase 94 U/L (41-126); Calcium 9.6 mg/dL (8.7-10.3); Carbon Dioxide 24.7 mmol/L (21.6-31.8); Chloride 96 mmol/L (96-109); Globulin 2.9 g/dL (1.6-3.3); Glucose 121 mg/dL (70-110); Potassium 4.2 mmol/L (3.5-5.5); Sodium 137 mmol/L (135-145); Total Bilirubin 0.6 mg/dL (0.3-1.2); Total Protein 7.6 g/dL (6.2-8.2)
== END | disposition home or self-care (01) ==
LOC: LABWHC1 09:03
PROVIDERS: ATTEND Internal Medicine Gastroenterology
DX: Z53.9 Procedure and treatment not carried out, unspecified reason (principal)
CPT/HCPCS: 36415; 80053; 85025